=== PATIENT | male | born 1965 | race Caucasian/White ===

== ENCOUNTER → 2023-02-05 10:54 | Outpatient (REF) | payer MEDICAID, SELFPAY ==
--- NOTE | 2023-02-05 11:01 | CA_ITS ---
Transthoracic Echocardiogram Patient (Last, First, Middle): Gabriel Stanford, Gender: Male Date of : 1965 Age: 57 Procedure Date: 02/05/2023 Procedure Type: Transthoracic Echocardiogram Location: OP Height: 177.8 cm Weight: 79.38 kg BSA: 1.97 m2 Heart Rate: 75 bpm BP: 130 / 65 mmHg Big Data Lead: MARTHA Referring MD: Astrid Hdez APRN Symptoms: Primary hypertension, Dyspnea Study Quality: Adequate ECG Rhythm: Arrhythmia Conclusions: - The left ventricular systolic function is mildly decreased. The calculated ejection fraction is 50% by biplane method. - No obvious valvular pathology seen on this study. Findings Left Ventricle Normal left ventricular cavity size. There is normal left ventricular wall thickness. The left ventricular systolic function is mildly decreased. The calculated ejection fraction is 50% by biplane method. There is no evidence of regional wall motion abnormalities. Diastolic function is normal for age. Right Ventricle Normal right ventricular cavity size and systolic function. Atria Both atria are normal in size. Aortic Valve There is a normal trileaflet aortic valve. There is no aortic valve stenosis. There is no aortic valve regurgitation. Mitral Valve The mitral valve appears normal. There is no mitral valve regurgitation. There is no mitral valve stenosis. Pulmonic Valve The pulmonic valve is likely normal. Tricuspid Valve There is no tricuspid valve regurgitation. Tricuspid regurgitation envelope is inadequate for calculation of right ventricular systolic pressure. Great Vessels The asc aorta is normal in size. Venous The inferior vena cava is normal in size and collapses greater than 50% with inspiration. Pericardium/Pleural There is no evidence of pericardial effusion. Prior Study Comparison No prior study available for comparison. Recommendations, Care & Conclusions No obvious valvular pathology seen on this study. Measurements 2D Linear Measurements IVSd: 0.86 0.6-0.9/0.6-1.0 cm LVIDd: 5.26 3.9-5.3/4.2-5.9 cm LVIDd Index: 2.67 2.4-3.2/2.2-3.1 cm/m2 LVIDs: 3.52 2.0-3.6 cm LVPWd: 0.73 0.7-1.1 cm LA Diam: 3.60 2.7-3.8/3.0-4.0 cm LAIDs Index: 1.83 1.5-2.3 cm/m2 LV Mass: 181.90 67-162/88-224 g LV Mass Index: 92.33 43-95/49-115 g/m2 LVOT Diam: 2.00 3.0+(-)1.3 cm 2D Systolic Function EF 4C: 49.80 >55% EF 2C: 51.20 >55% EF BiP: 49.90 >55% Mitral Valve MV Pk E: 0.77 MV PK A: 0.71 MV Decel Time: 220.00 E/A: 1.10 E'Lateral: 8.41 E'Medial: 5.96 E/E' Med: 12.90 E/E' Lat: 9.10 PHT: 64.00 MVA PHT: 3.44 Decel [place]: 3.49 Aortic Valve AoV Pk Toby: 1.26 AoV Mn Toby: 0.94 AoV VTI: 0.26 AoV Pk Grad: 6.00 Aov Mn Grad: 4.00 LILIAN Cont.VTI: 1.94 LVOT LVOT Pk Toby: 0.82 LVOT Mn Toby: 0.58 LVOT VTI: 0.16 LVOT Pk Grad: 3.00 LVOT Mn Grad: 2.00 LVOT Diam: 2.00 LVOT Area: 3.14 Diastolic Function MV Pk E: 0.77 MV Pk A: 0.71 E/A: 1.10 E'Medial: 5.96 E/E' Med: 12.90 E' Laterial: 8.41 E/E' Lat: 9.10 Right Ventricle TAPSE (mm): 20.30 TVS' Toby: 11.20 Great Vessels Aorta Sinus of Valsalva: 3.50 2.0-3.5 cm Ao Asc: 3.20 2.1-3.4 cm Pulmonary Valve PV Pk Toby: 1.28 Peak PV Grad: 7.00 Updated in Other Vendor System with Status of Final Brock Banda MD electronically signed on 02/06/2023 2:32:58 PM with status of Final
== END ==
LOC: HO.CARD 10:54
PROVIDERS: Visit Provider Nurse Practitioner
DX: I10 Essential (primary) hypertension (principal); R42 Dizziness and giddiness
CPT/HCPCS: 93306